=== PATIENT | female | born 1960 | race Caucasian/White ===

== ENCOUNTER → 2020-11-09 | Day surgery (SDC) | payer OTHER ==
[~2020-11-09] VITALS: Ht 157.5 cm; Wt 86.2 kg
[~2020-11-09] MED LIST: BENAZEPRIL HCL20 MG PO; DOXYCYCLINE MO100 M1 PO; NEXIUM20 MG PO; NORCO 5-325 TA1 EACH PO; ONDANSETRON ODT8 MG PO; REQUIP1 MG PO; SINGULAIR10 MG PO; SYNTHROID25 MCG PO; VIT D2 PO; XYZAL5 MG PO
[2020-11-09 09:58] LABS: HCT 38.1 % (37.0-47.0); HGB 12.5 g/dl (12.5-16.0); MCH 28.7 pg (25.0-31.0); MCHC 32.8 g/dL (32.0-36.0); MCV 87.4 fL (78.0-100.0); MPV 10.3 fL (6.0-9.5); RBC 4.36 M/uL (4.20-5.40); WBC 5.3 K/uL (4.0-10.5)
[2020-11-09 10:04] LABS: ALBUMIN 3.6 g/dL (3.4-5.0); BILIRUBIN - TOTAL 0.6 mg/dL (0.2-1.0); BUN/CREAT RATIO (CALC) 18.8 RATIO; CREATININE 0.64 mg/dL (0.51-0.95); GLOBULIN (CALCULATION) 3.1 g/dL; POTASSIUM 3.6 mmol/L (3.5-5.1); TOTAL PROTEIN 6.7 g/dL (6.4-8.2)
== END | disposition home or self-care (01) ==
LOC: FAS 07:47
PROVIDERS: Surgery
DX: K43.0 Incisional hernia with obstruction, without gangrene (principal); K56.51 Intestinal adhesions [bands], with partial obstruction; K65.4 Sclerosing mesenteritis; K21.9 Gastro-esophageal reflux disease without esophagitis; I10 Essential (primary) hypertension; E78.00 Pure hypercholesterolemia, unspecified; G25.81 Restless legs syndrome; E03.9 Hypothyroidism, unspecified; G47.30 Sleep apnea, unspecified; Z79.899 Other long term (current) drug therapy
CPT/HCPCS: 36415; 80053; 87070; 87075; 87205; 93005; J2250; J2405; J2704; J2710; J3010; J7120

== ENCOUNTER 2021-02-07 10:39 | Inpatient (IN) | payer OTHER ==
[~2021-02-07] VITALS: Ht 154.9 cm; Wt 98.0 kg
[2021-02-07 11:21] LABS: ALBUMIN 2.8 g/dL (3.4-5.0); BILIRUBIN - TOTAL 0.5 mg/dL (0.2-1.0); BUN/CREAT RATIO (CALC) 16.3 RATIO; CREATININE 0.86 mg/dL (0.51-0.95); GLOBULIN (CALCULATION) 3.7 g/dL; POTASSIUM 3.9 mmol/L (3.5-5.1); TOTAL PROTEIN 6.5 g/dL (6.4-8.2)
[2021-02-07 11:30] LABS: BASOPHIL 0.3 % (0-2); EOSINOPHIL 0 % (0-5); HCT 38.1 % (37.0-47.0); HGB 12.3 g/dl (12.5-16.0); LYMPHOCYTE 3.8 % (15-48); MCH 27.1 pg (25.0-31.0); MCHC 32.3 g/dL (32.0-36.0); MCV 83.9 fL (78.0-100.0); MONOCYTE 4.9 % (0-12); MPV 11.2 fL (6.0-9.5); NRBC 0; PLT 190 K/uL (150-400); RBC 4.54 M/uL (4.20-5.40); RDW 13.5 % (11.5-14.0); WBC 15.3 K/uL (4.0-10.5)
[2021-02-07 11:40] LABS: NEUTROPHIL 90.5 % (41-80)
[2021-02-07] MEDS ORDERED: NORVASC5 MG PO (17:13)
[2021-02-07] MEDS ORDERED: ELAVIL50 MG PO (17:13)
--- NOTE | 2021-02-08 00:05 | NUR ---
PT SAT WAS 85% @ 2030 SO RT DID AN ABG AND PO2 CAME BACK AND WAS 52.0 WITH A SAT OF 88.2%. NOTIFIED BENEDICTO MO APRN AND DR. ANGUIANO. THEY SUGGESTED TO TRY PT ON CPAP BUT PT DID NOT TOLERATE. DR. ANGUIANO THEN SUGGESTED TO PLACE PT ON 15L OXIMIZER AND PUT A NONREBREATHER OVER TOP OF IT. SAT CAME UP TO 91% AT THAT TIME.
[2021-02-08 06:51] LABS: BASOPHIL 0.1 % (0-2); EOSINOPHIL 0 % (0-5); HCT 37.6 % (37.0-47.0); LYMPHOCYTE 5.3 % (15-48); MCH 26.9 pg (25.0-31.0); MCHC 31.9 g/dL (32.0-36.0); MCV 84.3 fL (78.0-100.0); MONOCYTE 1.7 % (0-12); MPV 11.8 fL (6.0-9.5); NRBC 0; PLT 191 K/uL (150-400); RBC 4.46 M/uL (4.20-5.40); RDW 13.7 % (11.5-14.0); WBC 12.2 K/uL (4.0-10.5)
[2021-02-08 06:52] LABS: NEUTROPHIL 92.4 % (41-80)
[2021-02-08 07:29] LABS: ALBUMIN 2.3 g/dL (3.4-5.0); ALKALINE PHOSHATASE 61 U/L (46-116); ALT 54 U/L (14-59); AST 136 U/L (15-37); BILIRUBIN - TOTAL 0.9 mg/dL (0.2-1.0); BUN 29 mg/dL (7-18); BUN/CREAT RATIO (CALC) 25.2 RATIO; CHLORIDE 97 mmol/L (98-107); CO2 (BICARBONATE) 23 mmol/L (21-32); CREATININE 1.15 mg/dL (0.51-0.95); GLOBULIN (CALCULATION) 3.9 g/dL; GLUCOSE 215 mg/dL (74-106); POTASSIUM 4.1 mmol/L (3.5-5.1); TOTAL PROTEIN 6.2 g/dL (6.4-8.2)
[2021-02-08 07:30] LABS: C-REACTIVE PROTEIN > 18.00 mg/dL (<=0.90)
[2021-02-09 05:05] LABS: BASOPHIL 0.2 % (0-2); EOSINOPHIL 0 % (0-5); HCT 33.5 % (37.0-47.0); HGB 10.5 g/dl (12.5-16.0); LYMPHOCYTE 3.4 % (15-48); MCH 27.2 pg (25.0-31.0); MCHC 31.3 g/dL (32.0-36.0); MCV 86.8 fL (78.0-100.0); MONOCYTE 2.2 % (0-12); MPV 11.2 fL (6.0-9.5); NEUTROPHIL 93.6 % (41-80); NRBC 0; PLT 203 K/uL (150-400); RBC 3.86 M/uL (4.20-5.40); RDW 14.3 % (11.5-14.0)
[2021-02-09 05:07] LABS: WBC 10.9 K/uL (4.0-10.5)
[2021-02-09 05:44] LABS: IRON % SATURATION 4.3 %SAT (20-50)
[2021-02-09 05:51] LABS: ALBUMIN 1.8 g/dL (3.4-5.0); BILIRUBIN - TOTAL 0.3 mg/dL (0.2-1.0); BUN/CREAT RATIO (CALC) 19.9 RATIO; CREATININE 2.41 mg/dL (0.51-0.95); FOLIC ACID (SERUM) 14.8 ng/mL (8.6-58.9); GLOBULIN (CALCULATION) 3.7 g/dL; MAGNESIUM 2.6 mg/dL (1.8-2.4); PHOSPHORUS 5.1 mg/dL (2.6-4.7); POTASSIUM 4.8 mmol/L (3.5-5.1); TOTAL PROTEIN 5.5 g/dL (6.4-8.2)
--- NOTE | 2021-02-09 19:26 | NUR ---
PATIENT [REPARED FOR PRONING TODAY BUT FOUND PATIENT TO BE ON MED SURG BED. PATIENT TRANSFERRED FROM MED SURG BED TO ICU BED AND PRONING DELAYED UNTIL TOMORROW. IN PROCESS OF MOVING PATIENT CENTRAL LINE PULLED OUT. NEW ONE PLACED. DIONNE ALSO PLACED DURING SHIFT. STARTED WEANING PATIENT OFF OF PARALYTICS AND STARTED A BOLUS OF NORMAL SALINE.
[2021-02-10 07:52] LABS: BASOPHIL 0 % (0-2); EOSINOPHIL 0 % (0-5); HCT 30.2 % (37.0-47.0); HGB 9.4 g/dl (12.5-16.0); LYMPHOCYTE 7.4 % (15-48); MCH 26.9 pg (25.0-31.0); MCHC 31.1 g/dL (32.0-36.0); MCV 86.3 fL (78.0-100.0); MONOCYTE 4.2 % (0-12); MPV 11.9 fL (6.0-9.5); NEUTROPHIL 87.4 % (41-80); NRBC 0; PLT 189 K/uL (150-400); RDW 14.4 % (11.5-14.0)
[2021-02-10 08:11] LABS: ALBUMIN 1.6 g/dL (3.4-5.0); BILIRUBIN - TOTAL 0.2 mg/dL (0.2-1.0); CREATININE 2.74 mg/dL (0.51-0.95); MAGNESIUM 2.8 mg/dL (1.8-2.4); PHOSPHORUS 5.4 mg/dL (2.6-4.7); POTASSIUM 5.4 mmol/L (3.5-5.1); TOTAL PROTEIN 4.6 g/dL (6.4-8.2)
--- NOTE | 2021-02-10 15:46 | NUR ---
PT WAS TAKEN TO CT TWO RT TWO RN, PT TOLERATED PROCEDURE WELL. CT TO CHECK FOR ILEUS.
[2021-02-11 06:22] LABS: BASOPHIL 0.1 % (0-2); EOSINOPHIL 0 % (0-5); HCT 31.5 % (37.0-47.0); HGB 9.9 g/dl (12.5-16.0); LYMPHOCYTE 7.2 % (15-48); MCH 26.8 pg (25.0-31.0); MCHC 31.4 g/dL (32.0-36.0); MCV 85.4 fL (78.0-100.0); MONOCYTE 6.4 % (0-12); NRBC 0; PLT 249 K/uL (150-400); RBC 3.69 M/uL (4.20-5.40); RDW 14.4 % (11.5-14.0); WBC 7.4 K/uL (4.0-10.5)
[2021-02-11 07:19] LABS: ALBUMIN 1.7 g/dL (3.4-5.0); BILIRUBIN - TOTAL 0.2 mg/dL (0.2-1.0); CREATININE 2.83 mg/dL (0.51-0.95); GLOBULIN (CALCULATION) 3.1 g/dL; MAGNESIUM 3.1 mg/dL (1.8-2.4); PHOSPHORUS 5.4 mg/dL (2.6-4.7); POTASSIUM 5.8 mmol/L (3.5-5.1); TOTAL PROTEIN 4.8 g/dL (6.4-8.2)
--- NOTE | 2021-02-11 08:59 | NUR ---
SPOKE WITH DR. MARTHA GOOD INFORMED HIM OF PT ALAN, LABS AND URINE OUTPUT, INSERTION OF NEW F/C HE ORDERD LASIX 40MG IV X1, NORMAL SALINE 100ML/HR X 10 HOURS. WILL CTM.
[2021-02-11 11:02] LABS: BILIRUBIN NEGATIVE (NEGATIVE); BLOOD 3+ Ery/uL (NEGATIVE); GLUCOSE (U) 2+ mg/dL (NORMAL); LEUKOCYTES NEGATIVE Leu/uL (NEGATIVE); NITRITE NEGATIVE (NEGATIVE); PROTEIN 2+ mg/dL (NEGATIVE); SPECIFIC GRAVITY 1.025 (1.001-1.030); UROBILINOGEN 0.2 mg/dL (0.2-1.0)
[2021-02-11 11:03] LABS: COLOR AMBER (YELLOW)
[2021-02-11 11:04] LABS: CLARITY HAZY (CLEAR)
[2021-02-11 11:15] LABS: AMORPHOUS URATES CRYSTALS TRACE; URIC ACID CRYSTALS LARGE; URINARY RBC 20-50; YEAST PRESENT
[2021-02-11 11:17] LABS: BACTERIA TRACE
--- NOTE | 2021-02-11 13:44 | NUR ---
1320 PT TURNED TO PRONE POSITION, RT, RNS AT BEDSIDE PT TOLERATED WELL, WILL CTM.
[2021-02-11 16:24] LABS: CREATININE 2.77 mg/dL (0.51-0.95); POTASSIUM 5.5 mmol/L (3.5-5.1)
[2021-02-12 04:12] LABS: BASOPHIL 0.3 % (0-2); EOSINOPHIL 0 % (0-5); HCT 29.9 % (37.0-47.0); HGB 9.3 g/dl (12.5-16.0); LYMPHOCYTE 4.9 % (15-48); MCH 26.7 pg (25.0-31.0); MCHC 31.1 g/dL (32.0-36.0); MCV 85.9 fL (78.0-100.0); MONOCYTE 5.5 % (0-12); MPV 11.3 fL (6.0-9.5); NEUTROPHIL 84.7 % (41-80); NRBC 0; PLT 259 K/uL (150-400); RBC 3.48 M/uL (4.20-5.40); RDW 14.5 % (11.5-14.0); WBC 7.6 K/uL (4.0-10.5)
[2021-02-12 04:30] LABS: ALBUMIN 2.1 g/dL (3.4-5.0); BILIRUBIN - TOTAL 0.3 mg/dL (0.2-1.0); CREATININE 2.69 mg/dL (0.51-0.95); GLOBULIN (CALCULATION) 3.2 g/dL; MAGNESIUM 2.9 mg/dL (1.8-2.4); POTASSIUM 5.9 mmol/L (3.5-5.1); TOTAL PROTEIN 5.3 g/dL (6.4-8.2)
--- NOTE | 2021-02-12 05:23 | NUR ---
LATE ENTRY 0315 SIGNIFICANT SCLERA AND ORBITAL EDEMA AND GENERALIZED FACIAL EDEMA. PT VITALS AT THIS TIME 129/69, HR-69, 02-98%, R-24, AFBRILE. 0330 PT TURNED TO SUPINE POSITION, CHECK LIST PERFORMED PRIOR TO TURN, 6 STAFF AT BEDSIDE, RT HEAD OF BED. PT TOLERATED TURN WELL, VITALS POST TURN BP 121/65, HR-66, 02-92%, R-24. ALL PROTECTIVE DRESSING REMOVED, SLIGHT BLANCHABLE REDNESS NOTED FROM ALLEVYN, ARTERIAL LINE CHANGED. PUPILS ROUND AND REACTIVE. FLUID FILLED BLISTER TO LEFT INNER EYELID NOTED. SMALL PIN SIZED INFLAMED AREA TO TONGUE WITH SCANT BLOODY DRAINAGE NOTED. NO OPEN AREAS NOTED. F/C SECURED. LINES/TUBES INTACT AND SECURED. ORAL CARE AND SUCTION PERFORMED. ICE PACKS APPLIED D/T FACIAL SWELLING.
--- NOTE | 2021-02-12 06:25 | NUR ---
REPORTED ABG TO DIRECTOR DATA PO2-132 ON FIO2 80% SAT 99%. DIRECTOR DATA VERBAL ORDER TO DECREASE FIO2 TO 70%
--- NOTE | 2021-02-15 20:28 | NUR ---
ADDENDUM- 02/13/21 0300 GOT A CALL FROM TOVA AT THE [facility], THEY FOUND A BED AT [facility] ICU BED 7. REPORT WAS CALLED TO NELSY AROUND 0320. EMS WAS CALLED AND ARRIVED AROUND 0340 TO TRANSPORT PT. ER DOC AND TELE DOC WERE BOTH ASKED BY PRIMARY RN IF PT SHOULD GO BY GROUND OR AIR AND BOTH DECIDED GROUND WOULD BE FINE. EMS HAS BEEN IN PT. FOR THE LAST HOUR TRANSFERING PT. TO THEIR STRETCHER AND VENT. PT. WILL BE LEAVING FLOOR SHORTLY. LAST SET OF VITALS WERE 129/65 PER A LINE, PULSE 81, RESP 24, TEMP 96.2 AXILLARY. PT STABLE AT THE TIME OF DEPARTURE. ER,RN
--- NOTE | 2021-02-15 20:34 | NUR ---
LAST PT. NOTE ABOUT TRANSFER TO [facility] WAS ACCIDENTALLY TYPED UNDER KAYLIE FOREMAN. AHSAN VARNER WAS PRIMARY NURSE THAT NIGHT AND THE ONE WHO TYPED THE PT. NOTE. THANKS, ER,RN
== END 2021-02-13 06:26 | disposition other institution (70) | DRG 870 ==
LOC: FER 10:39 → FICU 12:41 → FTCU 12:41 → FICU 02-08 01:35
PROVIDERS: Emergency Medicine; Internal Medicine; Internal Medicine Nephrology; ADMIT Internal Medicine
PROC: XW033E5 Introduction of Remdesivir Anti-infective into Peripheral Vein, Percutaneous Approach, New Technology Group 5 (ICD-10-PCS; 2021-02-07)
PROC: XW0DXM6 Introduction of Baricitinib into Mouth and Pharynx, External Approach, New Technology Group 6 (ICD-10-PCS; 2021-02-07)
PROC: 0BH17EZ Insertion of Endotracheal Airway into Trachea, Via Natural or Artificial Opening (ICD-10-PCS; principal; 2021-02-08)
PROC: 5A1955Z Respiratory Ventilation, Greater than 96 Consecutive Hours (ICD-10-PCS; 2021-02-08)
PROC: 02HV33Z Insertion of Infusion Device into Superior Vena Cava, Percutaneous Approach (ICD-10-PCS; 2021-02-08)
PROC: 3E043XZ Introduction of Vasopressor into Central Vein, Percutaneous Approach (ICD-10-PCS; 2021-02-08)
PROC: 02HV33Z Insertion of Infusion Device into Superior Vena Cava, Percutaneous Approach (ICD-10-PCS; 2021-02-09)
DX: A41.89 Other specified sepsis (principal); U07.1 COVID-19; R65.21 Severe sepsis with septic shock; J96.01 Acute respiratory failure with hypoxia; J15.9 Unspecified bacterial pneumonia; N17.0 Acute kidney failure with tubular necrosis; E87.5 Hyperkalemia; D50.9 Iron deficiency anemia, unspecified; E03.9 Hypothyroidism, unspecified; K21.9 Gastro-esophageal reflux disease without esophagitis; G25.81 Restless legs syndrome; I10 Essential (primary) hypertension; Z90.710 Acquired absence of both cervix and uterus; Z90.89 Acquired absence of other organs; Z98.890 Other specified postprocedural states
CPT/HCPCS: 31500; 36415; 36600; 71045; 71250; 74018; 80048; 80053; 81001; 82607; 82728; 82746; 82803; 82962; 83540; 83550; 83605; 83735; 83880; 84100; 84132; 84145; 84439; 84443; 85025; 86140; 87040; 93005; 94002; 94640; 94667; C9399; J0330; J0456; J1100; J1644; J1650; J1940; J2185; J2250; J2543; J2916; J3010; J7030; J7050; J7060; P9046; U0002